=== PATIENT | female | born 1985 | race Caucasian/White ===

== ENCOUNTER 2017-08-16 21:28 | Emergency (ER) | payer BC, OTHER ==
--- NOTE | 2017-08-16 23:13 | EDPHY ---
General - History Smoking Status: Never smoked Time Seen by Provider: 08/16/17 23:02 Narrative: CHIEF COMPLAINT: Right hip pain, "I think my hip's dislocated HISTORY OF PRESENT ILLNESS: Patient complains of right hip pain and "I think my hip is dislocated." She reports injuring it last night while bowling. She then reports trying to ambulate today including a walk-in high. She was minimally able to do so this morning, and then unable to do so at all this evening. She has had difficulty walking due to the pain. It radiates into the thigh. She has not fallen on the extremity sustained trauma to the extremity. No numbness, tingling or weakness. No incontinence of bowel or bladder. No low back pain. No previous diagnosis to the hip or low back. No other associated complaints or modifying factors. ESTABLISHED ORTHOPEDIST: None REVIEW OF SYSTEMS: Ten systems reviewed and are negative unless otherwise noted in the HPI PAST MEDICAL HISTORY: Denies any medical diagnoses PAST SURGICAL HISTORY: No surgical history SOCIAL HISTORY: Nonsmoker. Occasional alcohol. No drug use. Works as a [employer] FAMILY HISTORY: Noncontributory EXAMINATION General Appearance: Alert, no distress Cardiovascular: Symmetric radial pulses. Symmetric DP pulses. Brisk cap refill with good signs of perfusion right lower extremity. Neurological: A&O, sensory symmetric, strength symmetric Skin: Warm and dry, no rash Extremities: There is tenderness in the right inguinal canal. No tenderness of the right greater trochanter. Difficult to range the right hip due to pain but she will ranges to some hip extension. Unable to externally rotate the hip. All compartments are soft the right lower extremity. Range of motion of the right knee and ankle symmetric to the left. Psychiatric: Mood and affect normal DIFFERENTIAL DIAGNOSES: Including but not limited to dislocation, sprain, strain, pelvic fracture, impingement MDM: 11:10 p.m. Right hip pain over the past 24 hr with difficulty ambulating. I do not appreciate any shortening or rotation of the lower extremity. She does have difficulty ambulating with a antalgic but steady gait. I have ordered x-ray of the right hip with pelvic view. She is in no acute distress and neurovascular intact distally 11:30 p.m. X-ray as read by me reveals no acute findings. I have re-evaluated the patient and further examined. The pain does appear to be purely musculoskeletal. Her passive range of motion is minimally painful if at all. Active range of motion of the hip flexors very painful. She remains neurovascular intact. She will be placed on crutches with short course of pain medication. I discussed follow up with primary care physician and Orthopedics for definitive care. I discussed ED precautions. She is comfortable this plan and discharged home stable condition. SUPERVISION: This patient was independently evaluated without direct involvement of or examination by the attending physician. ED Precautions: Worsening pain. Erythema, edema, cyanosis, pallor, paresthesia or anesthesia. (Kerwin Cooper) PHYSICIAN DOCUMENTATION: The patient was evaluated and managed by the Physician Berry Planter. My co- signature indicates that I have reviewed this chart and I agree with the findings and plan of care as documented. I am the secondary supervising physician. (Cheryle Gaspar) - Diagnostics Imaging Results: Imaging Impressions Hip X-Ray 08/16/17 23:13 Impression: 1. No acute osseous findings. 2. Mild uncovering of the right femoral head. - Objective Vital Signs: Initial Vital Signs Temperature (C) 36.9 C 08/16/17 21:31 Heart Rate 120 H 08/16/17 21:31 Respiratory Rate 16 08/16/17 21:31 Blood Pressure 146/88 H 08/16/17 21:31 O2 Sat (%) 93 08/16/17 21:31 O2 Delivery Mode Room Air Allergies/Adverse Reactions: No Known Allergies Allergy (Unverified 08/16/17 21:32) Home Medications: Medication Instructions Recorded oxyCODONE HCL/ACETAMINOPHEN 1 each PO Q4-6PRN PRN #7 tablet 08/16/17 [Percocet 5-325 mg Tablet] Medications Given: Discontinued Medications Oxycodone/Acetaminophen (Percocet 5/325mg Prepack#4) 1 btl TAKEHOME EDNOW ONE Stop: 08/16/17 23:40 Last Admin: 08/16/17 23:47 Dose: 1 btl Departure - Departure Disposition: Home, Routine, Self-Care Clinical Impression: Strain of flexor muscle of right hip Condition: Good Instructions: Oxycodone/Acetaminophen (By mouth), Musculoskeletal Pain (ED), Tendinitis (ED) Additional Instructions: 1. Ibuprofen 400 mg every 6-8 hours as needed 2. Percocet pain medication as prescribed as needed 3. Contact primary care physician tomorrow morning to be re-evaluated for this outpatient 4. ED precautions as discussed Referrals: Michele Almendarez MD [Primary Care Provider] - As per Instructions Prescriptions: oxyCODONE HCL/ACETAMINOPHEN [Percocet 5-325 mg Tablet] 1 each PO Q4-6PRN PRN #7 tablet PRN Reason: Pain, Breakthrough
[2017-08-16] MEDS ORDERED: OXYCODONE/APAP 5/325MG PREPACK#4 BTL TAKEHOME ONE (23:39)
[2017-08-16 23:51] VITALS: BP 134/78
== END 2017-08-16 23:51 | disposition home or self-care (01) ==
DX: S76.011A Strain of muscle, fascia and tendon of right hip, initial encounter (principal); X58.XXXA Exposure to other specified factors, initial encounter; Y99.8 Other external cause status; Y93.54 Activity, bowling